=== PATIENT | male | born 2000 | race Caucasian/White ===

== ENCOUNTER 2020-10-29 11:13 | Outpatient (CLI) | payer OTHER ==
[2020-10-29] MEDS ORDERED: Magnevist 469MG/ML 20 ML VIAL ONE (12:25)
--- NOTE | 2020-10-29 15:17 | MRI ---
EXAM: MRI of the abdomen and pelvis without and with contrast COMPARISON: None HISTORY: Crohn's disease TECHNIQUE: Multiplanar multi sequence MR images were taken of the abdomen and pelvis without and with IV contrast. VoLumen was given for enteric contrast.. FINDINGS: Bowel: The enteric contrast is seen throughout the small bowel to the level of the colon. The small b owel is normal in caliber without significant dilation. No significant thickening of the large or small bowel wall is seen. No significant asymmetric enhancement is seen in the bowel wall. Liver: No focal liver lesions or intrahepatic ductal dilatation. Gallbladder: No filling defects or gallbladder wall thickening. Common bile duct: Normal caliber without filling defects Adrenal glands: Unremarkable. Kidneys: No hydronephrosis. There is a nonenhancing 4 to 5 mm focus of high T2 signal in the right ki dney which likely represents a cyst. Spleen: Unremarkable. Pancreas: Unremarkable. Retroperitoneum: No enlarged lymph nodes Bones: No marrow signal abnormality. IMPRESSION: 1. No significant large or small bowel abnormality 2. Right renal cyst
== END 2020-10-29 11:14 | disposition home or self-care (01) ==
LOC: MRI 11:13
PROVIDERS: ATTEND Physician Assistant Medical
DX: K50.80 Crohn's disease of both small and large intestine without complications (principal); N28.1 Cyst of kidney, acquired
CPT/HCPCS: 74183; A9579; J1610